=== PATIENT | female | born 1970 | race Caucasian/White ===

== ENCOUNTER 2022-06-19 15:52 | Outpatient (CLI) | payer BC | END 2022-06-19 15:53 | disposition home or self-care (01) | LOC: CSHULT 15:52 | PROVIDERS: ATTEND Specialist | DX: E04.1 Nontoxic single thyroid nodule (principal); E04.9 Nontoxic goiter, unspecified | CPT/HCPCS: 76536 ==

== ENCOUNTER 2023-10-16 09:51 | Outpatient (CLI) | payer BC | END 2023-10-16 09:52 | disposition home or self-care (01) | LOC: CSHMAMMO 09:51 | PROVIDERS: ATTEND Specialist | DX: Z12.31 Encounter for screening mammogram for malignant neoplasm of breast (principal); M81.0 Age-related osteoporosis without current pathological fracture | CPT/HCPCS: 77063; 77067; 77080 ==